=== PATIENT | female | born 1980 | race Caucasian/White ===

== ENCOUNTER 2020-01-11 01:15 | Outpatient (CLI) | payer OTHER, SELFPAY ==
[2020-01-11 16:16] LABS: SARS-CoV-2 RNA PCR Negative
== END 2020-01-11 01:16 | disposition home or self-care (01) ==
LOC: ANHCOVIDDT 01:15
PROVIDERS: Visit Provider Obstetrics & Gynecology
DX: Z01.812 Encounter for preprocedural laboratory examination (principal); Z11.59 Encounter for screening for other viral diseases
CPT/HCPCS: 87635; C9803; U0003

== ENCOUNTER 2020-01-13 01:08 | Day surgery (SDC) | payer OTHER, SELFPAY ==
[2020-01-01 10:44] VITALS: BMI 28.1
[2020-01-13] VITALS (8 sets, daily range): BP systolic 92–115; BP diastolic 58–84; PULSE 61–81; RESP 12–18; TEMP 36.6–36.7; O2SAT 94–100
[2020-01-13] MEDS: LACTATED RINGERS 1,000 ML 30 ML IV CONT ×2 (06:25→08:24)
[2020-01-13] MEDS: KETOROLAC 15 MG/ML VIAL (*BKC) IV PUSH (06:26)
[2020-01-13] MEDS: ACETAMINOPHEN 500 MG TABLET 1000 MG PO (06:26)
--- NOTE | 2020-01-13 06:34 | WPDANESEPPF ---
Anes - Initial Pre Proc Eval Procedure: Operation Date: 01/13/20 07:30 Proposed Procedures p Laparoscopic Left Salpingo-Oophorectomy - Neto Overton MD Date/Time: 01/13/20 06:34 Surgeon: Neto Overton MD Pre Op Diagnosis: Unspecified Ovarian Cyst, Unspecified Side Patient Data Age: 39 Gender: F Height: 5 ft 2 in Weight: 69.85 kg Allergies Allergy/AdvReac Type Severity Reaction Status Date / Time No Known Allergies Allergy Unverified 01/01/20 10:46 Home Medications Medication Instructions Recorded Confirmed Type sertraline 50 mg PO DAILY 05/25/19 01/01/20 History Patient hx anesthesia problems: none Family hx anesthesia problems: none PMFSH Past Medical History Medical History (Updated 01/13/20 @ 06:34 by Kev Shelton MD) Anxiety Overweight Surgical History Surgical History (Updated 01/13/20 @ 06:35 by Kev Shelton MD) History of laparoscopy Family History Family History Father Hypertension Mother Hypertension Grandparent Family history of malignant melanoma Family history of malignant neoplasm of male breast Family history of malignant neoplasm of ovary Other Carcinoma of colon Social History Social History Smoking status: Never smoker Alcohol intake: current Substance use type: marijuana Last use: 12/23/2019 Gender identity (if verbalized by the patient): Female Spiritual care concerns: No Anes - Eval Final PreProcedure Day of Procedure 01/13/20 06:34 Patient weight: overweight Heart: regular rate and rhythm Lungs: clear to auscultation Airway: Mallampati scale class 1 Neurological: alert and oriented Last oral intake: >/= 8 hours ASA classification: II Emergent: no Anesthetic plan: proceed Anesthesia type and monitoring: general ETT and standard monitoring Informed Consent: The patient's anesthetic plan and its attendant risks and benefits were discussed with the patient/family/POA. Questions were solicited and answers provided to the satisfaction of the patient/family/POA.
--- NOTE | 2020-01-13 07:14 | WPDHPUPDATE1 ---
History and Physical Update Update Date/Time: 01/13/20 07:14 History and Physical has been reviewed, including an updated exam of the patient. There are NO changes in the patient's condition. Risks, benefits, and alternatives have been discussed and questions answered. Patient agrees to proceed with procedure.
--- NOTE | 2020-01-13 08:51 | P.OP_ITS ---
Procedure Note - Detailed Date of procedure: 01/13/20 Pre-op diagnosis: Unspecified Ovarian Cyst, Unspecified Side Procedure performed: Laparoscopic left salpingo-oophorectomy, adhesiolysis -20 minutes Description of procedure: The patient was taken the operating room. She was prepped and draped in the dorsal lithotomy position after induction of general anesthesia. A 5 mm left upper quadrant incision was made in the abdominal skin with a scalpel. A 5 mm trocar was inserted the intra-abdominal cavity under direct visualization of the scope. A 11 mm left lower quadrant incision was made with the scalp on the abdominal skin and a 11 mm trocar was inserted the intra-abdominal cavity under direct visualization of the scope. A 5 mm infraumbilical incision was made with scalpel and a 5 mm trocar was inserted into the intra-abdominal cavity under direct visualization of the scope. the ureter was identified on the left at the pelvic brim. The infundibulopelvic ligament was isolated. It was cauterized And transected with bipolar cautery and scissors. the para ovarian tissue was cauterized transected and similar fashion. This was continued on around to the medial fallopian to an suspensory ligament the ovary medially near the uterus. All th is tissue was cauterized transected using scissors and bipolar cautery. The left ovary and tube were amputated. There placed in endobag and taken out the left lower quadrant trocar site. 20 minutes of adhesiolysis was then performed at the junction of the bladder and lower uterine segment. There was a marked retroversion of the uterus which caused a traction on the anterior cul-de-sac peritoneum laterally and over the bladder. This was and Interceed was placed over the dissected area. The pelvis was irrigated with copious amounts of normal saline. The pneumoperitoneum was reduced. The trocars were removed. The patient was taken recovery room stable condition. Sponge lap and needle counts were correct x2. Anesthesia: GETA Surgeon: Neto Overton MD Estimated blood loss (mL): 20 Drains: No Packing: No Complications: No immediate complications Condition: stable Disposition: PACU Findings: The cystic left ovary with hydrosalpinx, there was adhesions in the anterior lower uterine segment that shayla the bladder and the lateral peritoneum downward creating a tension on the tissue there. Normal appearing right ovary, sharply retroverted uterus.
== END 2020-01-13 10:00 | disposition home or self-care (01) ==
PROVIDERS: Visit Provider Obstetrics & Gynecology
PROC: (CPT 49320; principal; 2020-01-13 07:30)
DX: N83.02 Follicular cyst of left ovary (principal); N73.6 Female pelvic peritoneal adhesions (postinfective); F41.9 Anxiety disorder, unspecified; F12.90 Cannabis use, unspecified, uncomplicated
CPT/HCPCS: 58661; 88304; 88305; A9270; J1100; J1885; J2250; J2405; J2704; J2710; J3010; J7030; J7120